=== PATIENT | male | born 1990 | race Caucasian/White ===

== ENCOUNTER 2017-05-26 01:21 | Emergency (ER) | payer SELFPAY ==
[~2017-05-26] VITALS: Ht 182.9 cm; Wt 71.0 kg
[2017-05-26 05:45] VITALS: BP 124/83
[2017-05-26] MEDS ORDERED: IBUPROFEN 600 MG TABLET PO ONE (05:45)
[2017-05-26] MEDS ORDERED: METHOCARBAMOL 500 MG TABLET PO ONE (05:45)
== END 2017-05-26 06:05 | disposition home or self-care (01) ==
LOC: EMS 01:26
DX: S13.4XXA Sprain of ligaments of cervical spine, initial encounter (principal); M54.5 Low back pain; V43.62XA Car passenger injured in collision with other type car in traffic accident, initial encounter; Y93.89 Activity, other specified; Y92.89 Other specified places as the place of occurrence of the external cause; Y99.8 Other external cause status
CPT/HCPCS: 72100; 99284